=== PATIENT | female | born 1980 | race Caucasian/White ===

== ENCOUNTER → 2025-05-26 18:20 | Outpatient (BNVA) | payer MEDICARE, SELFPAY | DX: Z20.2 Contact with and (suspected) exposure to infections with a predominantly sexual mode of transmission (principal) | CPT/HCPCS: 81513; 87481; 87491; 87591; 87661 ==

== ENCOUNTER → 2025-05-29 11:11 | Outpatient (BNVA) | payer MEDICARE, SELFPAY | DX: Z20.2 Contact with and (suspected) exposure to infections with a predominantly sexual mode of transmission (principal) | CPT/HCPCS: 81513; 87481; 87491; 87591; 87661 ==